=== PATIENT | female | born 1990 | race Hispanic/Latino ===

== ENCOUNTER 2018-01-12 17:11 | Emergency (ER) | payer BC ==
[2018-01-12 17:35] VITALS: O2SAT 100
[2018-01-12] MEDS ORDERED: Iohexol 240 (50 ml) PO ONE (17:57)
[2018-01-12] MEDS ORDERED: Sodium Chloride 0.9% 1,000 ML IV STA (18:02)
[2018-01-12] MEDS ORDERED: Iohexol 240 (50 ml) ONE (18:15)
--- NOTE | 2018-01-12 18:24 | ED PDOC ---
HPI: Abdomen Time Seen by Provider: 01/12/18 17:38 Chief Complaint (Nursing): Abdominal Pain Chief Complaint (Provider): Abdominal Pain History Per: Patient History/Exam Limitations: no limitations Onset/Duration Of Symptoms: Hrs (this morning), Waxing/Waning Current Symptoms Are (Timing): Still Present Additional Complaint(s): 27 year old female presents to the emergency department complaining of lower middle abdominal pain that began when she woke up this morning, which has been waxing and waning all day, but overall seems to be getting worse. She reports complete loss of appetite, subjective fever, chills, nausea, and diarrhea but denies any vomiting or dysuria. Along with this, she also notes some pain in her lower back. PMD: Luis Costello Past Medical History Reviewed: Historical Data, Nursing Documentation, Vital Signs Vital Signs: Last Vital Signs Temp 98.6 F 01/12/18 22:47 Pulse 77 01/12/18 22:47 Resp 16 01/12/18 22:47 BP 105/68 01/12/18 22:47 Pulse Ox 100 01/12/18 22:47 - Medical History PMH: No Chronic Diseases - Surgical History Surgical History: No Surg Hx - Family History Family History: States: No Known Family Hx - Social History Current smoker - smoking cessation education provided: No Alcohol: Occasional - Allergies Allergies/Adverse Reactions: Allergies Allergy/AdvReac Type Severity Reaction Status Date / Time Iodinated Contrast- Oral and Allergy RASH Verified 01/12/18 22:23 IV Dye Review of Systems ROS Statement: Except As Marked, All Systems Reviewed And Found Negative Constitutional: Positive for: Fever, Chills Gastrointestinal: Positive for: Nausea, Abdominal Pain (lower middle, waxing and waning), Diarrhea, Other (complete loss of appetite). Negative for: Vomiting Genitourinary Female: Negative for: Dysuria, Frequency Musculoskeletal: Positive for: Back Pain (lower) Physical Exam - Reviewed Nursing Documentation Reviewed: Yes Vital Signs Reviewed: Yes - Physical Exam Appears: Positive for: Non-toxic, In Acute Distress (mild painful) Head Exam: Positive for: ATRAUMATIC, NORMOCEPHALIC Skin: Positive for: Warm, Dry Eye Exam: Positive for: EOMI, PERRL ENT: Negative for: Pharyngeal Erythema, Tonsillar Exudate Neck: Positive for: Painless ROM, Supple Cardiovascular/Chest: Positive for: Regular Rate, Rhythm. Negative for: Murmur Respiratory: Positive for: Normal Breath Sounds. Negative for: Wheezing Gastrointestinal/Abdominal: Positive for: Soft, Tenderness (LLQ and periumbilical ), Other (positive McBurney's sign). Negative for: Distended, Rebound Back: Positive for: Normal Inspection. Negative for: Decreased ROM Extremity: Positive for: Normal ROM. Negative for: Deformity Lymphatic: Negative for: Adenopathy Neurologic/Psych: Positive for: Alert. Negative for: Motor/Sensory Deficits - Laboratory Results Result Diagrams: 01/12/18 18:25 01/12/18 18:25 - ECG O2 Sat by Pulse Oximetry: 100 (RA) Medical Decision Making Medical Decision Making: Initial Impression: lower abdominal pain DDx includes but is not limited to: appendicitis, cystitis, ovarian cyst, urinary tract infection, cholecystitis Time: 17:57 Initial Plan: --ABD/Pelvis PO and IV contrast --CMP --Lact acid, plasma --Lipase --ED Urine --ED Urine dipstick --CBC with differential --Dextrose 1000 ml IV --Sodium chloride 0.9% 1000 ml IV --Iohexol 50 ml PO --Blood culture --Urine culture --Urinalysis Labs unremarkable. Pending CT. Time: 2110 --CT ABD/pelvis FINDINGS: Lung bases: No acute findings. ABDOMEN: Liver: Probable mild fatty infiltration. Small calcification. Gallbladder and bile ducts: No calcified stones. No ductal dilation. Pancreas: No ductal dilation. No mass. Spleen: No splenomegaly. Adrenals: No mass. Kidneys and ureters: No mass. Duplicated left renal collecting system. Mild pelvocaliectasis of both kidneys. Stomach and bowel: No definite mural thickening. No obstruction. PELVIS: Appendix: Mildly enlarged distal appendix, measuring up to 0.8 cm in diameter, located within midline lower abdomen. Intraluminal contrast within proximal and mid appendix. No contrast within distal appendix. No definite surrounding inflammatory stranding. Bladder: Distended bladder. Reproductive: Unremarkable as visualized. ABDOMEN and PELVIS: Intraperitoneal space: Trace free fluid within pelvis. No free air. Bones/joints: No acute fracture. Soft tissues: Tiny umbilical hernia containing fat. Vasculature: Unremarkable. No aneurysm. Lymph nodes: Several subcentimeter short axis mesenteric lymph nodes, nonspecific. IMPRESSION: 1. Mild enlarged appendix without definite surrounding inflammation. Early appendicitis not excluded. Clinical correlation is needed. 2. Incidental/non-acute findings are described above. 2100 On reeval, pt reports feeling better and would like to eat. DW pt findings and need for surgical evaluation prior to eating. DW Dr Peralta residential support worker. 2199 Dr Edge evaluated patient and d/w Dr Gallegos. Pt to be given PO challenge and reassessed. Pt now reporting rash that she had developed to face after CT, but just noticed in her LEFT arm (although it may have been there since the CT.) Benadryl ordered. 2229 Pt tolerated PO and continues to report feeling better. Abdomen benign on reassessment. Stable for discharge. Understands reason to RTER. Scribe Attestation: Documented by Leona Danielle, acting as a scribe for Nahomy Waterman MD Provider Scribe Attestation: All medical entries made by the Scribe were at my direction and personally dictated by me. I have reviewed the chart and agree that the record accurately reflects my personal performance of the history, physical exam, medical decision making, and the department course for this patient. I have also personally directed, reviewed, and agree with the discharge instructions and disposition. Disposition - Clinical Impression Clinical Impression: Abdominal pain Counseled Patient/Family Regarding: Studies Performed, Diagnosis, Need For Followup - Disposition Referrals: Dustin Gallegos MD [Staff Provider] - (FOLLOW UP WITH YOUR DOCTOR TOMORROW FOR REEVALUATION) Disposition: Routine/Home Disposition Time: 22:34 Condition: IMPROVED Additional Instructions: RETURN TO ER IMMEDIATELY FOR: INCREASED PAIN, FEVER, VOMITING, OR ANY OTHER WORSENING SYMPTOMS. OTHERWISE FOLLOW UP WITH YOUR DOCTOR TOMORROW FOR REEVALUATION Instructions: Acute Abdomen (Belly Pain), Adult (DC) Forms: [facility] ED School/Work Excuse
[2018-01-12 18:40] LABS: SQUAMOUS EPITHIAL 13 /hpf (0-5); URINE BILIRUBIN NEGATIVE (NEGATIVE); URINE BLOOD NEGATIVE (NEGATIVE); URINE CLARITY CLOUDY (Clear); URINE COLOR YELLOW (YELLOW); URINE GLUCOSE (UA) NEG (Normal); URINE HYALINE CAST 0-2 /hpf (0-2); URINE LEUKOCYTE ESTERASE LARGE Leu/uL (Negative); URINE PROTEIN NEGATIVE (NEGATIVE); URINE UROBILINOGEN 0.2-1.0 mg/dL (0.2-1.0)
[2018-01-12 18:42] LABS: BASO # 0.1 K/uL (0.0-0.2); EOS # 0.1 K/uL (0.0-0.7); HEMOGLOBIN 13.9 g/dL (12.0-16.0); LYMPH # 0.5 K/uL (1.0-4.3); LYMPH % 4.7 % (20.0-40.0); MEAN CELL VOLUME 89.1 fl (81.0-99.0); MEAN CORPUSCULAR HEMOGLOBIN 29.5 pg (27.0-31.0); MEAN CORPUSCULAR HGB CONC 33.1 g/dL (33.0-37.0); MEAN PLATELET VOLUME 7.9 fl (7.2-11.7); MONO # 0.7 K/uL (0.0-0.8); MONO % 6.4 % (0.0-10.0); NEUT # 8.9 K/uL (1.8-7.0); NEUT % 86.9 % (50.0-75.0); PLATELET COUNT 285 K/uL (130-400); RBC 4.71 Mil/uL (3.80-5.20); RED CELL DISTRIBUTION WIDTH 12.7 % (11.5-14.5); WHITE BLOOD COUNT 10.2 K/uL (4.8-10.8)
[2018-01-12 18:47] LABS: ALB/GLOB RATIO 1.1 (1.0-2.1); ALBUMIN 4.7 g/dL (3.5-5.0); CALCIUM 9.5 mg/dL (8.4-10.2); GFR AFRICAN-AMERICAN > 60; GFR NON-AFRICAN AMERICAN > 60; LIPASE 98 U/L (23-300)
[2018-01-12 18:52] LABS: ALT/SGPT 29 U/L (9-52); AST/SGOT 33 U/L (14-36); BLOOD UREA NITROGEN 14 mg/dl (7-17)
[2018-01-12 19:40] VITALS: PULSE 77; RESP 16
[2018-01-12 19:51] LABS: LYMPHOCYTE 7 % (20-50); MONOCYTE 2 % (0-10); NEUTROPHIL 91 % (42-75); TOTAL CELLS COUNTED 100
[2018-01-12 19:52] LABS: PLATELET ESTIMATE NORMAL (NORMAL)
[2018-01-12] MEDS ORDERED: Sodium Chloride 0.9% 100 ML ONE (20:28)
--- NOTE | 2018-01-12 21:11 | CT ---
EXAM: CT Abdomen and Pelvis With Intravenous Contrast CLINICAL HISTORY: 27 years old, female; Pain; Abdominal pain; Localized; Left lower quadrant (llq); Additional info: Lower abd pain R/O appendicitis. Sent phy. Doc. TECHNIQUE: Axial computed tomography images of the abdomen and pelvis with intravenous contrast. All CT scans at this facility use one or more dose reduction techniques, viz.: automated exposure control; ma/kV adjustment per patient size (including targeted exams where dose is matched to indication; i.e. head); or iterative reconstruction technique. Coronal and sagittal reformatted images were created and reviewed. CONTRAST: 90 mL of administered intravenously. COMPARISON: No relevant prior studies available. FINDINGS: Lung bases: No acute findings. ABDOMEN: Liver: Probable mild fatty infiltration. Small calcification. Gallbladder and bile ducts: No calcified stones. No ductal dilation. Pancreas: No ductal dilation. No mass. Spleen: No splenomegaly. Adrenals: No mass. Kidneys and ureters: No mass. Duplicated left renal collecting system. Mild pelvocaliectasis of both kidneys. Stomach and bowel: No definite mural thickening. No obstruction. PELVIS: Appendix: Mildly enlarged distal appendix, measuring up to 0.8 cm in diameter, located within midline lower abdomen. Intraluminal contrast within proximal and mid appendix. No contrast within distal appendix. No definite surrounding inflammatory stranding. Bladder: Distended bladder. Reproductive: Unremarkable as visualized. ABDOMEN and PELVIS: Intraperitoneal space: Trace free fluid within pelvis. No free air. Bones/joints: No acute fracture. Soft tissues: Tiny umbilical hernia containing fat. Vasculature: Unremarkable. No aneurysm. Lymph nodes: Several subcentimeter short axis mesenteric lymph nodes, nonspecific. IMPRESSION: 1. Mild enlarged appendix without definite surrounding inflammation. Early appendicitis not excluded. Clinical correlation is needed. 2. Incidental/non-acute findings are described above.
--- NOTE | 2018-01-12 21:57 | CP.PCM.CON ---
<TungrainDale - Last Filed: 01/13/18 05:16> History of Present Illness - History of Present Illness History of Present Illness: General Surgery Consult for Dr. Gallegos This is a 27F with no PMH or PSH who presents to the Ed with complaints of dull abdominal pain that started this AM. It has went away and returned 3 times since it started. She reports that it was so bad earlier today that she felt faint however at this time she feels better. She reports that she has had pain this in the past that has been associated with her menstrual cycle. She reports that at this time she is not in pain and is hungry. She denies any fevers or chills at home. She denies any other signs or symptoms, she denies any dysuria or hematuria. CT in the ED was significant for incomplete filling of the appendix without definite stranding or inflammatory changes, could not rule out early appendicitis. PMH: None PSH: None ALL: None Social: denies tobacco, use or drug use, admits to social drinking once a week FDLMP: 12/30 Review of Systems - Constitutional Constitutional: absent: Anorexia, Chills, Fever, Malaise Additional comments: Malaise and anorexia resolved. - EENT Eyes: absent: Change in Vision - Cardiovascular Cardiovascular: absent: Chest Pain, Dyspnea - Respiratory Respiratory: absent: Dyspnea, Dyspnea on Exertion - Gastrointestinal Gastrointestinal: absent: Abdominal Pain, Hematochezia, Nausea, Vomiting Additional comments: Abdominal pain, nausea were present currently absent - Genitourinary Genitourinary: absent: Difficulty Urinating, Dysuria - Reproductive: Female Reproductive:Female: Dysmenorrhea Past Patient History - Infectious Disease Hx of Infectious Diseases: None - Past Social History Alcohol: Occasional - PSYCHIATRIC Hx Substance Use: No - SURGICAL HISTORY Hx Surgeries: No - ANESTHESIA Hx Anesthesia: No Meds Allergies/Adverse Reactions: Allergies Allergy/AdvReac Type Severity Reaction Status Date / Time Iodinated Contrast- Oral and Allergy RASH Verified 01/12/18 22:23 IV Dye - Medications Medications: Current Medications Dextrose/Sodium Chloride (Dextrose 5%-0.9% Ns 500 Ml) 1,000 mls @ 100 mls/hr IV .Q10H MICHELLE Last Admin: 01/12/18 19:35 Dose: 100 mls/hr Physical Exam - Constitutional Appears: Non-toxic, No Acute Distress - Head Exam Head Exam: ATRAUMATIC, NORMOCEPHALIC - Eye Exam Eye Exam: EOMI, Normal appearance - Neck Exam Neck exam: Positive for: Normal Inspection - Respiratory Exam Respiratory Exam: NORMAL BREATHING PATTERN - Cardiovascular Exam Cardiovascular Exam: +S1, +S2 - GI/Abdominal Exam GI & Abdominal Exam: Normal Bowel Sounds, Soft. absent: Distended, Firm, Guarding, Hernia, Rigid Additional comments: Mildly tender to deep palpation caudal to the umbilicus - Extremities Exam Extremities exam: Positive for: normal inspection - Neurological Exam Neurological exam: Alert, Oriented x3 - Psychiatric Exam Psychiatric exam: Normal Affect, Normal Mood - Skin Skin Exam: Dry, Intact Results - Vital Signs Recent Vital Signs: Last Vital Signs Temp 97.7 F 01/12/18 17:32 Pulse 77 01/12/18 19:39 Resp 16 01/12/18 19:39 BP 135/72 01/12/18 19:39 Pulse Ox 100 01/12/18 21:37 - Labs Result Diagrams: 01/12/18 18:25 01/12/18 18:25 Labs: Laboratory Results - last 24 hr 01/12/18 01/12/18 01/12/18 18:00 18:25 18:25 WBC 10.2 RBC 4.71 Hgb 13.9 Hct 42.0 MCV 89.1 MCH 29.5 MCHC 33.1 RDW 12.7 Plt Count 285 MPV 7.9 Neut % (Auto) 86.9 H Lymph % (Auto) 4.7 L Stewart % (Auto) 6.4 Eos % (Auto) 1.0 Baso % (Auto) 1.0 Neut # (Auto) 8.9 H Lymph # (Auto) 0.5 L Stewart # (Auto) 0.7 Eos # (Auto) 0.1 Baso # (Auto) 0.1 Neutrophils % (Manual) 91 H Lymphocytes % (Manual) 7 L Monocytes % (Manual) 2 Platelet Estimate Normal RBC Morphology Normal Sodium 140 Potassium 4.2 Chloride 98 Carbon Dioxide 24 Anion Gap 22 H BUN 14 Creatinine 0.7 Est GFR ( Amer) > 60 Est GFR (Non-Af Amer) > 60 Random Glucose 99 Lactic Acid Calcium 9.5 Total Bilirubin 0.9 AST 33 ALT 29 Alkaline Phosphatase 78 Total Protein 8.8 H Albumin 4.7 Globulin 4.1 H Albumin/Globulin Ratio 1.1 Lipase 98 Urine Color Yellow Urine Clarity Cloudy Urine pH 5.0 Ur Specific [place] 1.023 Urine Protein Negative Urine Glucose (UA) Neg Urine Ketones Negative Urine Blood Negative Urine Nitrate Negative Urine Bilirubin Negative Urine Urobilinogen 0.2-1.0 Ur Leukocyte Esterase Large Urine Microscopic WBC 38 H Ur Squamous Epith Cells 13 H Hyaline Casts 0-2 01/12/18 18:25 WBC RBC Hgb Hct MCV MCH MCHC RDW Plt Count MPV Neut % (Auto) Lymph % (Auto) Stewart % (Auto) Eos % (Auto) Baso % (Auto) Neut # (Auto) Lymph # (Auto) Stewart # (Auto) Eos # (Auto) Baso # (Auto) Neutrophils % (Manual) Lymphocytes % (Manual) Monocytes % (Manual) Platelet Estimate RBC Morphology Sodium Potassium Chloride Carbon Dioxide Anion Gap BUN Creatinine Est GFR ( Amer) Est GFR (Non-Af Amer) Random Glucose Lactic Acid 0.9 Calcium Total Bilirubin AST ALT Alkaline Phosphatase Total Protein Albumin Globulin Albumin/Globulin Ratio Lipase Urine Color Urine Clarity Urine pH Ur Specific [place] Urine Protein Urine Glucose (UA) Urine Ketones Urine Blood Urine Nitrate Urine Bilirubin Urine Urobilinogen Ur Leukocyte Esterase Urine Microscopic WBC Ur Squamous Epith Cells Hyaline Casts - Imaging and Cardiology CT scan - chest Status: Image reviewed by me, Report reviewed by me CT scan - pelvis Status: Image reviewed by me, Report reviewed by me Assessment & Plan - Assessment and Plan (Free Text) Assessment: 27F with abdominal pain which is resolved Unlikely appendicitis as patient is no longer in pain and non tender. Patient is afebrile without any signs of infection. Patient is requesting food. It is my recommendation that we feed the patient. If the patient tolerates diet discharge home with instructions to return if pain returns or worsens or if she develops constitutional symptoms such as fevers or chills. Discussed with Dr. El Edge PGY2 <Prince Gallegos - Last Filed: 01/13/18 20:13> Results - Vital Signs Recent Vital Signs: Last Vital Signs Temp 98.6 F 01/12/18 22:47 Pulse 77 01/12/18 22:47 Resp 16 01/12/18 22:47 BP 105/68 01/12/18 22:47 Pulse Ox 100 01/13/18 15:25 - Labs Result Diagrams: 01/12/18 18:25 01/12/18 18:25 Attending/Attestation - Attestation I have fully participated in the care of the patient.: Yes I have reviewed all pertinent clinical information: Yes Notes (Text): Pt with abdominal pain for 1 day Labs and radiology reviewed Less likely Appendicitis Ass: Lower abdominal pain Plan : Reg diet Can be DC home f.u in ER if pain returns Plan d.w pt in detail Risk and benefit explained in detail.
[2018-01-12] MEDS ORDERED: DiphenhydrAMINE 50 mg/ml Inj IVP STA (22:04)
[2018-01-12 22:48] VITALS: BP 105/68; TEMP 98.6
== END 2018-01-12 23:05 | disposition home or self-care (01) ==
LOC: H.ER 17:11
DX: R10.30 Lower abdominal pain, unspecified (principal); R21 Rash and other nonspecific skin eruption
CPT/HCPCS: 74177; 80053; 81003; 81025; 83605; 83690; 85025; 87040; 87086; 96361; 96374; 99285; J1200; J7040; J7042; Q9966